=== PATIENT | female | born 1965 | race Caucasian/White ===

== ENCOUNTER 2020-01-16 09:48 | Inpatient (IN) | payer OTHER ==
[~2020-01-16] VITALS: Ht 162.6 cm; Wt 75.6 kg
[2020-01-16 10:34] LABS: BASOPHILS % (AUTO) 0 % (0-1); EOSINOPHILS % (AUTO) 0 % (1-7); LYMPHOCYTES % (AUTO) 11 % (22-44); MEAN CORPUSCULAR HEMOGLOBIN 29.2 pg (27.0-34.8); MEAN CORPUSCULAR HGB CONC 31.5 g/dL (32.4-35.8); MEAN PLATELET VOLUME 9.5 fL (7.4-10.4); MONOCYTES % (AUTO) 9 % (2-9); NEUTROPHILS % (AUTO) 80 % (42-75); PLATELET COUNT 245 x10^3/uL (130-400); RED CELL DISTRIBUTION WIDTH 14.6 % (9.6-15.2)
[2020-01-16 10:45] LABS: ALANINE AMINOTRANSFERASE 6 U/L (12-78); ALBUMIN 2.9 g/dL (3.4-5.0); ANION GAP 16 mmol/L (5-15); CALCIUM 9.2 mg/dL (8.5-10.1); CHLORIDE 100 mmol/L (98-107); CREATININE 1.09 mg/dL (0.55-1.02)
[2020-01-16 10:47] LABS: ALKALINE PHOSPHATASE 88 U/L (45-117); BILIRUBIN,TOTAL 0.5 mg/dL (0.2-1.0); TOTAL PROTEIN 8.5 g/dL (6.4-8.2)
[2020-01-16 10:55] LABS: MD NO
--- NOTE | 2020-01-16 11:22 | NUR ---
TASK RN, ASSISTING PRIMARY. IV PLACED, ADDITONAL LABS DRAWN BY DISPATCH SPECIALIST. NS BOLUS STARTED. PT PLACED ON HEART MONITOR, BP CUFF, PULSE OX. CALL LIGHT WITHIN REACH. PT AND FAMILY UPDATED ON POC, ALL QUESTIONS ANSWERED.
[2020-01-16 11:28] LABS: MICROSCOPIC AUTO
[2020-01-16] MEDS ORDERED: SODIUM CHLORIDE 0.9% 1,000ML IVBOLUS ONE ×2 (11:30→12:30)
[2020-01-16] MEDS ORDERED: SODIUM CHLORIDE FLUSH 10ML SYR IVF ONE (11:30)
[2020-01-16] MEDS ORDERED: SODIUM CHLORIDE 0.9% 1,000 ML IV ONE ×2 (11:30→13:00)
[2020-01-16 11:57] LABS: ACETONE, SERUM Large (80mg/dL) (Negative)
[2020-01-16] MEDS ORDERED: INSULIN REGULAR 100 UNITS/ML, 3ML VIAL IVPush ONE (12:30)
--- NOTE | 2020-01-16 12:52 | NUR ---
UPDATED ON POC FSBS 492, STATES OK TO PROCEED W/ INSULIN DOSE.
[2020-01-16] MEDS ORDERED: INSULIN SINGLE DOSE, ER ONE (12:54)
--- NOTE | 2020-01-16 13:00 | NUR ---
PT MEDICATED PER EMAR. PT RESTING ON GURNEY W/ CALL LIGHT IN REACH AND SIDE RAILS UPX2. VSS, NADN. AWAITING ADMIT.
[2020-01-16 13:07] LABS: ESTIMATED AVERAGE GLUCOSE 355 mg/dL (0-126)
--- NOTE | 2020-01-16 13:19 | NUR ---
PT SLEEPING ON GURNEY W/ CALL LIGHT IN REACH AND SIDE RAILS UPX2. RESP EVEN AND UNLABORED, YOHAN.
[2020-01-16] MEDS ORDERED: SODIUM CHLORIDE FLUSH 10ML SYR IVF PRN (13:30)
--- NOTE | 2020-01-16 13:34 | NUR ---
TASK RN COVERING MEAL BREAK. IVF CLARIFICATION WITH ERP-2LITER NS BOLUS, FOLLOWED BY NS 250 CC/HR X 4 HRS THEN START NS AT 125CC/HR. ERP ORDERING ADDITIONAL CHEMISTRY LAB, VOIDING NEED FOR NEXT FS.
--- NOTE | 2020-01-16 14:03 | NUR ---
PT ASSISTED UP AND TO BR VIA WC. DTR IN BR WITH PT. PT STATES SHE SELF CATHS BUT HAD SOME INCONTINENCE OF URINE TO BED AND FLOOR. CHUX PAD PLACED ON BED. PT BROUGHT OWN CATHETER.
[2020-01-16 14:12] LABS: ANION GAP 14 mmol/L (5-15); CALCIUM 7.9 mg/dL (8.5-10.1); CHLORIDE 109 mmol/L (98-107)
[2020-01-16 14:13] LABS: CREATININE 0.74 mg/dL (0.55-1.02)
[2020-01-16] MEDS ORDERED: ACETAMINOPHEN 325 MG TABLET ONE (14:27)
[2020-01-16] MEDS ORDERED: ACETAMINOPHEN 325 MG TABLET PO ONE (14:30)
--- NOTE | 2020-01-16 14:31 | NUR ---
PT HAS C/O DR.SAHM EITAN UPDATED. PT MEDICATED PER EMAR. PT RESTING ON GURNEY W/ CALL LIGHT IN REACH AND SIDE RAILS UPX2, FAMILY AT BEDSIDE. YOHAN WEEKS. AWAITING ADMIT.
[2020-01-16] MEDS ORDERED: GLUCAGON 1 MG IM PRN (15:00)
[2020-01-16] MEDS ORDERED: ONDANSETRON 2MG/ML, 2ML IV PRN (15:00)
[2020-01-16] MEDS: SODIUM CHLORIDE 0.9% 1,000 ML IV SCH ×2 (15:00→18:16)
[2020-01-16] MEDS ORDERED: DEXTROSE 4 GM TAB.CHEW PO PRN (15:00)
[2020-01-16] MEDS ORDERED: DEXTROSE 50%, 50ML SYRINGE IVPush PRN (15:00)
[2020-01-16] MEDS ORDERED: ONDANSETRON ODT 4 MG PO PRN (15:00)
[2020-01-16] MEDS ORDERED: D5%-0.45NACL+KCL 20MEQ 1,000 ML IV SCH (15:00)
[2020-01-16] MEDS ORDERED: ENOXAPARIN 40 MG/0.4 ML ONE (15:25)
[2020-01-16] MEDS: ENOXAPARIN 40 MG/0.4 ML SQ SCH (15:31)
--- NOTE | 2020-01-16 15:42 | NUR ---
PT TRANSPORTED TO HOSPITAL BED W/O INCIDENT. VSS, YOHAN. FAMILY AT BEDSIDE.
--- NOTE | 2020-01-16 15:45 | NUR ---
INSULIN PEN REQ FROM PHARMACY.
--- NOTE | 2020-01-16 15:49 | NUR ---
ATTEMPT TO CALL REPORT, [facility] STATES THEY ARE UNAWARE OF ADMIT AND NEED TO VERIFY WITH [employer] CLAIMS SUPERVISOR.
[2020-01-16] MEDS ORDERED: INSULIN GLARGINE 100 UNITS/ML, PEN SQ-INSULIN SCH (16:00)
--- NOTE | 2020-01-16 16:11 | NUR ---
REPORT GIVEN TO MATTIE SWANSON. PT IS READY FOR TRANSPORT AT THIS TIME.
[2020-01-16 16:24] LABS: ANION GAP 16 mmol/L (5-15); CALCIUM 7.8 mg/dL (8.5-10.1); CHLORIDE 108 mmol/L (98-107); CREATININE 0.76 mg/dL (0.55-1.02)
[2020-01-16 17:23] VITALS: BP 112/72
[2020-01-16] MEDS: INSULIN LISPRO 100 UNITS/ML, PEN SQ-INSULIN SCH ×2 (18:17→20:42)
[2020-01-16 19:48] VITALS: BP 102/65
[2020-01-16] MEDS ORDERED: INSULIN LISPRO 100 UNIT/ML, 3ML VIAL SQ-INSULIN ONE (20:00)
[2020-01-16 20:23] LABS: ANION GAP 13 mmol/L (5-15); CALCIUM 7.8 mg/dL (8.5-10.1); CHLORIDE 110 mmol/L (98-107); CREATININE 0.64 mg/dL (0.55-1.02)
[2020-01-16] MEDS: SENNA/DOCUSATE TABLET PO SCH (20:29)
[2020-01-16] MEDS: SODIUM CHLORIDE FLUSH 10ML SYR IVF SCH (20:29)
[2020-01-16] MEDS: ACETAMINOPHEN 325 MG TABLET PO PRN (23:48)
[2020-01-17] MEDS ORDERED: INSULIN LISPRO 100 UNIT/ML, 3ML VIAL SQ-INSULIN ONE
[2020-01-17] MEDS: SODIUM CHLORIDE 0.9% 1,000 ML IV SCH (00:36)
[2020-01-17 00:39] LABS: ANION GAP 14 mmol/L (5-15); CALCIUM 7.8 mg/dL (8.5-10.1); CHLORIDE 110 mmol/L (98-107); CREATININE 0.61 mg/dL (0.55-1.02)
[2020-01-17 02:42] VITALS: BP 99/62
[2020-01-17] MEDS: INSULIN LISPRO 100 UNITS/ML, PEN SQ-INSULIN PRN ×9 (02:58→23:57)
[2020-01-17] MEDS ORDERED: SODIUM CHLORIDE 0.9% 1,000 ML IV SCH (05:00)
[2020-01-17 05:05] LABS: CHLORIDE 112 mmol/L (98-107)
[2020-01-17 05:21] LABS: ANION GAP 11 mmol/L (5-15); CALCIUM 7.8 mg/dL (8.5-10.1); CREATININE 0.59 mg/dL (0.55-1.02)
[2020-01-17 07:30] VITALS: BP 106/67
[2020-01-17] MEDS ORDERED: POTASSIUM CHLORIDE 40 MEQ in SODIUM CHLORIDE 0.9% 500 ML IV ONE (07:30)
[2020-01-17 08:09] LABS: ANION GAP 10 mmol/L (5-15); CALCIUM 7.9 mg/dL (8.5-10.1); CHLORIDE 112 mmol/L (98-107); CREATININE 0.63 mg/dL (0.55-1.02)
[2020-01-17] MEDS: SENNA/DOCUSATE TABLET PO SCH ×2 (08:22→19:38)
[2020-01-17] MEDS: SODIUM CHLORIDE FLUSH 10ML SYR IVF SCH ×2 (08:26→19:55)
[2020-01-17] MEDS ORDERED: INSULIN GLARGINE 100 UNITS/ML, PEN SQ-INSULIN SCH (12:00)
[2020-01-17 12:32] LABS: ANION GAP 10 mmol/L (5-15); CALCIUM 7.9 mg/dL (8.5-10.1); CHLORIDE 111 mmol/L (98-107); CREATININE 0.56 mg/dL (0.55-1.02)
[2020-01-17 12:54] VITALS: BP 110/71
[2020-01-17] MEDS: POTASSIUM CHLORIDE 40 MEQ in LACTATED RINGERS 1,000 ML IV SCH ×2 (13:14→18:21)
[2020-01-17] MEDS: ENOXAPARIN 40 MG/0.4 ML SQ SCH (14:43)
[2020-01-17] MEDS: ACETAMINOPHEN 325 MG TABLET PO PRN (14:44)
[2020-01-17 16:16] LABS: ANION GAP 12 mmol/L (5-15); CHLORIDE 110 mmol/L (98-107); CREATININE 0.48 mg/dL (0.55-1.02)
[2020-01-17] MEDS ORDERED: POTASSIUM CHLORIDE 20 MEQ TAB.ER.PRT PO ONE (18:00)
[2020-01-17 19:07] VITALS: BP 108/74
[2020-01-17] MEDS: INSULIN GLARGINE 100 UNITS/ML, PEN SQ-INSULIN SCH (19:48)
[2020-01-18 01:05] VITALS: BP 113/73
[2020-01-18] MEDS: ACETAMINOPHEN 325 MG TABLET PO PRN ×3 (01:11→22:15)
[2020-01-18] MEDS: POTASSIUM CHLORIDE 40 MEQ in LACTATED RINGERS 1,000 ML IV SCH ×3 (01:45→20:31)
[2020-01-18] MEDS: INSULIN LISPRO 100 UNITS/ML, PEN SQ-INSULIN PRN ×5 (04:19→20:34)
[2020-01-18 04:50] LABS: ALBUMIN 1.9 g/dL (3.4-5.0); ANION GAP 9 mmol/L (5-15); BASOPHILS % (AUTO) 0 % (0-1); CALCIUM 8.1 mg/dL (8.5-10.1); CHLORIDE 107 mmol/L (98-107); EOSINOPHILS % (AUTO) 0 % (1-7); LYMPHOCYTES % (AUTO) 25 % (22-44); MEAN CORPUSCULAR HEMOGLOBIN 29.2 pg (27.0-34.8); MEAN CORPUSCULAR HGB CONC 33.2 g/dL (32.4-35.8); MONOCYTES % (AUTO) 13 % (2-9); NEUTROPHILS % (AUTO) 62 % (42-75); PLATELET COUNT 205 x10^3/uL (130-400); RED BLOOD COUNT 4.27 x10^6/uL (3.82-5.3); RED CELL DISTRIBUTION WIDTH 13.2 % (9.6-15.2)
[2020-01-18 04:52] LABS: MD NO
[2020-01-18 04:55] LABS: ALKALINE PHOSPHATASE 56 U/L (45-117); BILIRUBIN,TOTAL 0.5 mg/dL (0.2-1.0); TOTAL PROTEIN 5.9 g/dL (6.4-8.2)
[2020-01-18 04:58] LABS: ALANINE AMINOTRANSFERASE < 6 U/L (12-78)
[2020-01-18] MEDS ORDERED: MAGNESIUM SULFATE PMX 2GM/50ML 50 ML IV ONE (07:00)
[2020-01-18 07:59] VITALS: BP 121/84
[2020-01-18] MEDS: SODIUM CHLORIDE FLUSH 10ML SYR IVF SCH ×2 (08:45→20:32)
[2020-01-18] MEDS: SENNA/DOCUSATE TABLET PO SCH ×2 (08:45→20:32)
[2020-01-18] MEDS: CEFTRIAXONE PMX 1GM/50ML 50 ML IV SCH (12:28)
[2020-01-18 12:36] VITALS: BP 122/85
[2020-01-18] MEDS: ENOXAPARIN 40 MG/0.4 ML SQ SCH (16:36)
[2020-01-18 19:54] VITALS: BP 117/82
[2020-01-18] MEDS: INSULIN GLARGINE 100 UNITS/ML, PEN SQ-INSULIN SCH (20:33)
[2020-01-19 01:55] VITALS: BP 109/76
[2020-01-19] MEDS: POTASSIUM CHLORIDE 40 MEQ in LACTATED RINGERS 1,000 ML IV SCH ×3 (03:05→18:03)
[2020-01-19] MEDS: INSULIN LISPRO 100 UNITS/ML, PEN SQ-INSULIN PRN (04:34)
[2020-01-19 05:13] LABS: BASOPHILS % (AUTO) 1 % (0-1); EOSINOPHILS % (AUTO) 0 % (1-7); LYMPHOCYTES % (AUTO) 33 % (22-44); MEAN CORPUSCULAR HEMOGLOBIN 29.1 pg (27.0-34.8); MEAN CORPUSCULAR HGB CONC 33.1 g/dL (32.4-35.8); MEAN PLATELET VOLUME 8.6 fL (7.4-10.4); MONOCYTES % (AUTO) 15 % (2-9); NEUTROPHILS % (AUTO) 51 % (42-75); PLATELET COUNT 201 x10^3/uL (130-400); RED BLOOD COUNT 4.48 x10^6/uL (3.82-5.3); RED CELL DISTRIBUTION WIDTH 13.5 % (9.6-15.2)
[2020-01-19 05:24] LABS: MD NO
[2020-01-19 05:27] LABS: CALCIUM 8.9 mg/dL (8.5-10.1); CHLORIDE 108 mmol/L (98-107)
[2020-01-19 05:33] LABS: ALBUMIN 2.1 g/dL (3.4-5.0); ALKALINE PHOSPHATASE 56 U/L (45-117); ANION GAP 8 mmol/L (5-15); BILIRUBIN,TOTAL 0.4 mg/dL (0.2-1.0); CREATININE 0.46 mg/dL (0.55-1.02); TOTAL PROTEIN 6.2 g/dL (6.4-8.2)
[2020-01-19 05:38] LABS: ALANINE AMINOTRANSFERASE < 6 U/L (12-78)
[2020-01-19 06:23] VITALS: BP 114/76
[2020-01-19] MEDS ORDERED: INSULIN GLARGINE 100 UNITS/ML, PEN SQ-INSULIN SCH ×3 (08:00→21:00)
[2020-01-19] MEDS: SENNA/DOCUSATE TABLET PO SCH ×2 (09:00→20:44)
[2020-01-19] MEDS: INSULIN LISPRO 100 UNITS/ML, PEN SQ-INSULIN SCH ×3 (09:40→22:25)
[2020-01-19] MEDS: SODIUM CHLORIDE FLUSH 10ML SYR IVF SCH ×2 (09:40→21:00)
[2020-01-19 12:03] VITALS: BP 117/78
[2020-01-19] MEDS: CEFTRIAXONE PMX 1GM/50ML 50 ML IV SCH (12:35)
[2020-01-19] MEDS ORDERED: INSU100I11 SQ-INSULIN (12:43)
[2020-01-19] MEDS ORDERED: INSU100I13 SQ-INSULIN (12:43)
[2020-01-19] MEDS: ENOXAPARIN 40 MG/0.4 ML SQ SCH (15:10)
[2020-01-19 19:23] VITALS: BP 106/72
[2020-01-20] MEDS: POTASSIUM CHLORIDE 40 MEQ in LACTATED RINGERS 1,000 ML IV SCH ×2 (00:01→06:23)
[2020-01-20 02:35] VITALS: BP 98/67
[2020-01-20] MEDS: ACETAMINOPHEN 325 MG TABLET PO PRN (05:02)
[2020-01-20 05:44] LABS: BASOPHILS % (AUTO) 0 % (0-1); EOSINOPHILS % (AUTO) 0 % (1-7); LYMPHOCYTES % (AUTO) 39 % (22-44); MEAN CORPUSCULAR HEMOGLOBIN 28.7 pg (27.0-34.8); MEAN CORPUSCULAR HGB CONC 33.1 g/dL (32.4-35.8); MONOCYTES % (AUTO) 11 % (2-9); NEUTROPHILS % (AUTO) 50 % (42-75); PLATELET COUNT 203 x10^3/uL (130-400); RED BLOOD COUNT 4.59 x10^6/uL (3.82-5.3); RED CELL DISTRIBUTION WIDTH 13.6 % (9.6-15.2)
[2020-01-20 05:53] LABS: ANION GAP 7 mmol/L (5-15); CALCIUM 8.5 mg/dL (8.5-10.1); CHLORIDE 102 mmol/L (98-107)
[2020-01-20 05:55] LABS: CREATININE 0.43 mg/dL (0.55-1.02)
[2020-01-20 06:04] LABS: MD NO
[2020-01-20] MEDS: INSULIN LISPRO 100 UNITS/ML, PEN SQ-INSULIN SCH ×3 (07:20→15:50)
[2020-01-20] MEDS: SENNA/DOCUSATE TABLET PO SCH (09:00)
[2020-01-20] MEDS: SODIUM CHLORIDE FLUSH 10ML SYR IVF SCH (09:00)
[2020-01-20 09:02] VITALS: BP 107/75
[2020-01-20] MEDS: CEFTRIAXONE PMX 1GM/50ML 50 ML IV SCH (12:34)
[2020-01-20 14:46] VITALS: BP 109/76
[2020-01-20] MEDS: ENOXAPARIN 40 MG/0.4 ML SQ SCH (15:00)
[2020-01-20] MEDS ORDERED: CIPR500T87 PO (17:20)
== END 2020-01-20 18:35 | disposition home or self-care (01) | DRG 637 ==
LOC: ED 10:55 → EDIP 12:21 → 4WST 17:12
PROVIDERS: ADMIT Family Medicine; ATTEND Family Medicine
DX: E11.10 Type 2 diabetes mellitus with ketoacidosis without coma (principal); N17.0 Acute kidney failure with tubular necrosis; E87.1 Hypo-osmolality and hyponatremia; N39.0 Urinary tract infection, site not specified; B96.20 Unspecified Escherichia coli [E. coli] as the cause of diseases classified elsewhere; K43.9 Ventral hernia without obstruction or gangrene; K59.00 Constipation, unspecified; B96.1 Klebsiella pneumoniae [K. pneumoniae] as the cause of diseases classified elsewhere; E86.0 Dehydration; Z79.4 Long term (current) use of insulin; Z90.710 Acquired absence of both cervix and uterus; Z79.899 Other long term (current) drug therapy
CPT/HCPCS: 36415; 80048; 80053; 81001; 82010; 82800; 82962; 83036; 83690; 83735; 84100; 84443; 84681; 85025; 87077; 87086; 87186; 93005; 96361; 96374; 99291; G0378; J0696; J1650; J1815; J3480; J3475; J7030; J7040; J7120

== ENCOUNTER 2020-11-29 07:25 | Day surgery (SDC) | payer MEDICAID, OTHER ==
[~2020-11-29] VITALS: Ht 165.1 cm; Wt 79.5 kg
[~2020-11-29 07:25] MED LIST: CIPR500T87 PO; INSU100I11 SQ-INSULIN; INSU100I13 SQ-INSULIN
[2020-11-29] MEDS ORDERED: LIDOCAINE 1%, 20ML ONE (07:45)
[2020-11-29] MEDS ORDERED: LIDOCAINE 1%-EPI 1:100K, 20ML ONE (07:45)
[2020-11-29] MEDS ORDERED: SODIUM BICARBONATE 4.2%, 5ML ONE (07:45)
[2020-11-29 09:35] VITALS: BP 134/93
[2020-11-29] MEDS ORDERED: SITA100T PO (09:56)
[2020-11-29] MEDS ORDERED: METF10007 PO (09:56)
[2020-11-29] MEDS ORDERED: MIDAZOLAM 1 MG/ML, 2ML ONE (09:58)
[2020-11-29] MEDS ORDERED: FENTANYL PF 250 MCG/5ML ONE (09:58)
[2020-11-29] MEDS: LACTATED RINGERS 1,000 ML IV SCH (10:38)
[2020-11-29] MEDS: CHLORHEXIDINE 15 ML UDC PO ONE (10:38)
[2020-11-29] MEDS ORDERED: PROPOFOL 50 ML ONE (10:38)
[2020-11-29 11:00] LABS: ALBUMIN 3.3 g/dL (3.4-5.0); CALCIUM 8.8 mg/dL (8.5-10.1)
[2020-11-29] MEDS ORDERED: MEPERIDINE/PF 25MG/0.5ML IVPush PRN (11:00)
[2020-11-29] MEDS ORDERED: HYDROmorphone 1 MG/ML, 1ML INJ IVPush PRN (11:00)
[2020-11-29] MEDS ORDERED: HYDROcodone/APAP 7.5-325MG/15ML UDC PO PRN (11:00)
[2020-11-29] MEDS ORDERED: LORazepam 2 MG/ML, 1ML IVPush PRN (11:00)
[2020-11-29] MEDS ORDERED: FENTANYL PF 100 MCG/2ML IV PRN (11:00)
[2020-11-29] MEDS ORDERED: DIPHENHYDRAMINE 50 MG/ML, 1ML IVPush PRN (11:00)
[2020-11-29] MEDS ORDERED: ONDANSETRON 2MG/ML, 2ML IVPush PRN (11:00)
[2020-11-29] MEDS ORDERED: PROMETHAZINE 25 MG/ML, 1ML IVPush PRN (11:00)
[2020-11-29] MEDS ORDERED: METHOCARBAMOL 1,000 MG in DEXTROSE 5% 100 ML IV PRN (11:00)
[2020-11-29 11:03] LABS: ALANINE AMINOTRANSFERASE 22 U/L (12-78); ALKALINE PHOSPHATASE 66 U/L (45-117); BILIRUBIN,TOTAL 0.8 mg/dL (0.2-1.0); CREATININE 0.59 mg/dL (0.55-1.02); TOTAL PROTEIN 6.9 g/dL (6.4-8.2)
[2020-11-29] MEDS: BUPIVACAINE/PF-EPI 0.5% 1:200K INFIL ONE (11:03)
[2020-11-29] MEDS ORDERED: HYDR-2214 PO (11:12)
[2020-11-29 11:15] LABS: ANION GAP 5 mmol/L (5-15); CHLORIDE 106 mmol/L (98-107)
== END 2020-11-29 13:00 | disposition home or self-care (01) ==
LOC: SDC 07:25 → EDSTATUS 10:30 → OUT 13:00
PROVIDERS: ATTEND Surgery
DX: D24.2 Benign neoplasm of left breast (principal); E11.9 Type 2 diabetes mellitus without complications; E66.9 Obesity, unspecified; Z20.822 Contact with and (suspected) exposure to COVID-19; Z79.84 Long term (current) use of oral hypoglycemic drugs; Z79.899 Other long term (current) drug therapy; Z80.3 Family history of malignant neoplasm of breast
CPT/HCPCS: 19125; 19285; 19286; 76098; 80053; 82962; 87635; 88307; 93005; J2250; J2704; J3010; J7120; 76942